=== PATIENT | female | born 1945 | race Caucasian/White ===

== ENCOUNTER 2016-02-22 05:20 | Day surgery (SDC) | payer MEDICARE, BC ==
[2016-02-21 14:15] LABS: HEMATOCRIT 42.1 % (36.0-48.0); MCH 30.2 pg (26.0-34.0); MCHC 33.3 g/dL (31.0-37.0); MCV 90.7 fL (80.0-100.0); MEAN PLATELET VOLUME 10.5 fL (7.4-10.4); RBC 4.64 10x6/uL (4.00-5.40); RDW 12.8 % (11.5-14.5); WBC 9.8 10x3/uL (4.8-10.8)
[~2016-02-22] VITALS: Ht 154.9 cm; Wt 60.3 kg
[~2016-02-22 05:20] MED LIST: CALTRATE 600 M600 M1 PO; ESTRACE 0.0142.5 GM VG; FISH OIL 1,2001 CAP PO; PEPCID20 MG PO; PRAVACHOL80 MG PO; VITAMIN D31000 UNI2 PO; ZESTRIL40 MG PO
[2016-02-22 06:25] VITALS: BP 141/50; Ht 154.9 cm; Wt 60.3 kg
--- NOTE | 2016-02-22 07:31 | NUR ---
0712: DR MCCARTHY INJECTING RIGHT FOOT WITH LIDOCAINE 1% AND BUPIVICAINE 0.5%.
--- NOTE | 2016-02-22 09:34 | NUR ---
0934--IV DC'D, PT DRESSING AT THIS TIME. PATI WATKINS
--- NOTE | 2016-02-22 09:47 | NUR ---
0945--DISCHARGE INSTRUCTIONS GIVEN, PT VERBALIZES UNDERSTANDING. PT OFF UNIT VIA DAVIS. PATI WATKINS
--- NOTE | 2016-03-14 09:50 | OP ---
PATIENT NAME: NISHA VU MEDICAL RECORD: [id number] :47 LOCATION:[facility] ADMISSION DATE: SURGEON: BLAIR MCCARTHY DPM DATE OF OPERATION: 02/22/2016 PREOPERATIVE DIAGNOSIS: Arthritis, right first metatarsophalangeal joint. POSTOPERATIVE DIAGNOSIS: Arthritis, right first metatarsophalangeal joint. PROCEDURE: Right first MPJ fusion. ANESTHESIA: Local with IV sedation utilizing lidocaine and Marcaine plain, 15 cc around the first ray of the right foot. HEMOSTASIS: Right thigh tourniquet at 350 mmHg. PREOPERATIVE DETAILS: The patient was taken to the OR and placed on the operating table in supine position. This was followed by induction of general anesthesia and infiltration of local anesthetic. The right extremity was then prepped and draped in the usual aseptic technique followed by exsanguination of extremity and inflation of tourniquet. A 15 blade was used to create a 4-cm linear incision over dorsal aspect of the first MPJ. The incision was deepened down through subcutaneous tissue to the joint capsule. A linear capsulotomy was performed and the head of the first metatarsal and base of the proximal phalanx were delivered. A McGlamry scoop elevator were used to free the metatarsal head. At this time, utilizing cone and cup reamers, the joint was reamed followed by temporary fixation and application of a 5-hole plate, 1 hole crossing the fusion site. The C-arm was used to verify the placement and alignment. There was excellent rigid internal fixation. The wound was flushed. The capsule was closed with 2-0 Vicryl, the subcutaneous tissue with 4-0 Rapide and the skin was closed with 4-0 Rapide in a subcuticular technique followed by Dermabond, Adaptic, 4 x 4 and Conform were used to dress the wound followed by application of a modified Ortega compression dressing, the tourniquet was deflated. POSTOPERATIVE DETAILS: The patient tolerated the procedure well and left the OR with vital signs stable and vascular status at preop levels. The patient was transported to recovery per anesthesia in stable condition. TRANSINT:[id number] Voice Confirmation ID: [id number] DOCUMENT ID: [id number] BLAIR MCCARTHY DPM at 0950 CC: [id number] DICTATION DATE: 02/22/16809 PET CARETAKER: 02/22/16 0826 [facility] [place] 02/22/16 [id number] [place] [address]
== END 2016-02-22 09:45 | disposition home or self-care (01) ==
LOC: D.OPS 05:20 → D.PAN 07:30 → D.OPS 07:30
PROVIDERS: Anesthesiology
DX: M13.871 Other specified arthritis, right ankle and foot (principal); I10 Essential (primary) hypertension; K21.9 Gastro-esophageal reflux disease without esophagitis

== ENCOUNTER → 2017-09-24 23:55 | Outpatient (CLI) | payer MEDICARE, BC ==
[2016-02-22 06:25] VITALS: BMI 25.1
== END | disposition home or self-care (01) ==
LOC: D.MAMMO 14:45
DX: Z12.31 Encounter for screening mammogram for malignant neoplasm of breast (principal)

== ENCOUNTER 2019-11-10 09:00 | Outpatient (CLI) | payer MEDICARE, BC ==
[2016-02-22 06:25] VITALS: BMI 25.1
== END 2019-11-10 09:15 | disposition home or self-care (01) ==
LOC: D.MAMMO 09:00
PROVIDERS: ATTEND Family Medicine
DX: Z12.31 Encounter for screening mammogram for malignant neoplasm of breast (principal)